=== PATIENT | male | born 1975 | race Caucasian/White ===

== ENCOUNTER 2022-11-27 09:17 | Outpatient (OUT) | payer BC, SELFPAY ==
--- NOTE | 2022-11-27 09:25 | XR_ITS ---
[address] [address] Patient Name: JENNA VILLARREAL MRN: [id number] date: 1975 Sex: M Assigned Patient Location: RAD Current Patient Location: [facility] Accession/Order Number: [id number] Exam Date: 11/27/2022 09:30 Report Date: 11/27/2022 11:52 At the request of: HERMAN ROGER Procedure: XR shoulder RT min 2V EXAM: XR shoulder RT min 2V HISTORY: Right Shoulder Injury COMPARISON: None. TECHNIQUE: 3 views FINDINGS: No acute fracture or dislocation. Mild degenerative change of the acromioclavicular joint. Unremarkable soft tissues. XR/XR shoulder RT min 2V IMPRESSION: Degenerative changes as above. Electronically authenticated by: CORTNEY EDDY Date: 11/27/2022 11:52
== END 2022-11-27 09:18 | disposition home or self-care (01) ==
PROVIDERS: PCP Nurse Practitioner; Visit Provider Nurse Practitioner
DX: S49.91XA Unspecified injury of right shoulder and upper arm, initial encounter (principal)
CPT/HCPCS: 73030

== ENCOUNTER 2023-06-09 15:13 | Outpatient (OUT) | payer BC, SELFPAY ==
--- NOTE | 2023-06-09 15:23 | XR_ITS ---
The [address] [address] Patient Name: JENNA VILLARREAL MRN: [id number] date: 1975 Sex: M Assigned Patient Location: [facility] Current Patient Location: [facility] Accession/Order Number: [id number] Exam Date: 06/09/2023 15:40 Report Date: 06/09/2023 16:36 At the request of: NON-STAFF PHYSICIAN Procedure: XR forearm LT 2V EXAM: XR forearm LT 2V HISTORY: left elbow pain . The patient fell yesterday. COMPARISON: None. TECHNIQUE: 2 views of the left forearm were obtained. FINDINGS: There is no apparent acute fracture or dislocation. The joint spaces proximally and distally are intact. No osteochondral injury is identified. There is no evidence of a joint effusion at the elbow. No abnormal soft tissue calcifications or radiopaque foreign body is identified. XR/XR forearm LT 2V IMPRESSION: No acute fracture or dislocation. The joint spaces are intact. There is no evidence of a joint effusion at the elbow. Electronically authenticated by: LACEY BASURTO Date: 06/09/2023 16:36
== END 2023-06-09 15:14 | disposition home or self-care (01) ==
LOC: RAD 15:16
PROVIDERS: PCP Nurse Practitioner
DX: M25.522 Pain in left elbow (principal)
CPT/HCPCS: 73090

== ENCOUNTER 2023-06-25 12:09 | Outpatient (OUT) | payer BC, SELFPAY ==
--- NOTE | 2023-06-25 12:13 | XR_ITS ---
The [address] [address] Patient Name: JENNA VILLARREAL MRN: [id number] date: 1975 Sex: M Assigned Patient Location: [facility] Current Patient Location: Accession/Order Number: [id number] Exam Date: 06/25/2023 12:16 Report Date: 06/26/2023 15:44 At the request of: SUZAN SAM Procedure: XR elbow LT min 3V PROCEDURE: XR elbow LT min 3V DATE: 06/25/2023 11:16 AM APPLICATION SUPPORT TECHNICIAN COMPARISONS: None CLINICAL INDICATION: Left Elbow Pain M25.522 FINDINGS: There is no evidence of fractures or other osseous abnormalities. No evidence of left elbow joint effusion. XR/XR elbow LT min 3V IMPRESSION: Left elbow radiographs show no evidence of abnormalities. Electronically authenticated by: KAYCEE FENG Date: 06/26/2023 15:44
--- OUTSIDE RECORDS SUMMARY | 2023-06-25 12:25 | XMS_ITS | CCD ---
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 BC #### [facility] [address] [place] [address] Dr. Katharine Limon Hemoglobin (Bld) [Mass/Vol] 17.1 g/dL Normal 14.0-18.0 [facility] Comment on above: Performed By: #### C BC #### [facility] [address] [place] [address] Dr. Katharine Limon IG # 0.02 10e3/ul Normal 0.00-0.03 [facility] Comment on above: Performed By: #### C BC #### [facility] [address] [place] [address] Dr. Katharine Limon IG % 0.3 % Normal 0.0-0.5 [facility] Comment on above: Performed By: #### C BC #### [facility] [address] [place] [address] Dr. Katharine Limon LYMPH # 1.9 103/ul Normal 1.2-3.8 [facility] Comment on above: Performed By: #### C BC #### [facility] [address] [place] [address] Dr. Katharine Limon Lymphocytes/100 WBC (Bld) 29.2 % Normal 20.5-60.0 [facility] Comment on above: Performed By: #### C BC #### [facility] [address] [place] [address] Dr. Katharine Limon MANUAL DIFF REQ NO Normal [facility] Comment on above: Performed By: #### C BC #### [facility] [address] [place] [address] Dr. Katharine Limon MCH (RBC) [Entitic mass] 30.3 pg Normal 25.9-34.0 [facility] Comment on above: Performed By: #### C BC #### [facility] [address] [place] [address] Dr. Katharine Limon MCHC (RBC) [Mass/Vol] 35.8 g/dL Critically high 29.9-35.2 [facility] Comment on above: Performed By: #### C BC #### [facility] [address] [place] [address] Dr. Katharine Limon MCV (RBC) [Entitic vol] 84.6 fL Normal 80.0-94.0 [facility] Comment on above: Performed By: #### C BC #### [facility] [address] [place] [address] Dr. Katharine Limon MONO # 0.8 103/ul Normal 0.3-0.8 [facility] Comment on above: Performed By: #### C BC #### [facility] [address] [place] [address] Dr. Katharine Limon Monocytes/100 WBC (Bld) 11.9 % Normal 1.7-12.0 [facility] Comment on above: Performed By: #### C BC #### [facility] [address] [place] [address] Dr. Katharine Limon NEUT # 3.6 103/ul Normal 1.4-6.5 [facility] Comment on above: Performed By: #### C BC #### [facility] [address] [place] [address] Dr. Katharine Limon Neutrophils/100 WBC (Bld) 53.3 % Normal 43.0-75.0 [facility] Comment on above: Performed By: #### C BC #### [facility] [address] [place] [address] Dr. Katharine Limon Platelet mean volume (Bld) [Entitic vol] 9.6 fL Normal 9.5-13.5 [facility] Comment on above: Performed By: #### C BC #### [facility] [address] [place] [address] Dr. Katharine Limon PLT 178 103/ul Normal 150-450 [facility] Comment on above: Performed By: #### C BC #### [facility] [address] [place] [address] Dr. Katharine Limon RBC 5.65 106/ul Normal 4.70-6.10 [facility] Comment on above: Performed By: #### C BC #### [facility] [address] [place] [address] Dr. Katharine Limon WBC 6.7 103/ul Normal 4.0-11.0 [facility] Comment on above: Performed By: #### C BC #### [facility] [address] [place] [address] Dr. Katharine Limon D-DIMERon 07-21-2022 D-DIMER 0.27 mg/L FEU Normal <=0.59 [facility] Comment on above: Performed By: #### D DIM #### [facility] [address] [place] [address] Dr. Katharine Limon D-DIMER COMMENTS SEE BELOW Normal [facility] Comment on above: Result Comment: Incr eases in D-Dimer concentration observed with thromboembolic events can be variable due to localization, size, and age of the thrombus. Therefore, a thromboembolic event cannot be diagnosed with certainty on the basis of the reference range. D-Dimers may also be elevated for a variety of disorders including: advanced age, , coronary disease, cancer, liver disease, infection, inflammation, hematoma, DIC, trauma, post-surgery, diabetes, thrombolytic or anticoagulant therapy, stress, and generalized hospitalization. Performed By: #### D DIM #### [facility] [address] [place] [address] Dr. Katharine Limon PROF CHEM 8 (BAS METB)on Anion gap [Moles/Vol] 13.6 mmol/L Normal [facility] Comment on above: Performed By: #### B HOSPICE ENTRANCE ATTENDANT, HSTROPN, BMP #### [facility] [address] [place] [address] Dr. Katharine Limon Calcium [Mass/Vol] 9.7 mg/dL Normal 8.5-10.1 [facility] Comment on above: Performed By: #### B HOSPICE ENTRANCE ATTENDANT, HSTROPN, BMP #### [facility] [address] [place] [address] Dr. Katharine Limon Chloride [Moles/Vol] 105 mmol/L Normal 98-107 [facility] Comment on above: Performed By: #### B HOSPICE ENTRANCE ATTENDANT, HSTROPN, BMP #### [facility] [address] [address] [address] Katharine Limon CO2 [Moles/Vol] 28.5 mmol/L Normal 21.0-32.0 [facility] Comment on above: Performed By: #### B HOSPICE ENTRANCE ATTENDANT, HSTROPN, BMP #### [facility] [address] [place] [address] Dr. Katharine Limon Creatinine [Mass/Vol] 1.04 mg/dL Normal 0.70-1.30 [facility] Comment on above: Performed By: #### B HOSPICE ENTRANCE ATTENDANT, HSTROPN, BMP #### [facility] [address] [place] [address] Dr. Katharine Limon EGFR-AF [place] >60 Normal >=60 [facility] Comment on above: Performed By: #### B HOSPICE ENTRANCE ATTENDANT, HSTROPN, BMP #### [facility] [address] [place] [address] Dr. Katharine Limon EGFR-NON AF [place] >60 Normal >=60 [facility] Comment on above: Performed By: #### B HOSPICE ENTRANCE ATTENDANT, HSTROPN, BMP #### [facility] [address] [place] [address] Dr. Katharine Limon Glucose [Mass/Vol] 104 mg/dL Normal 74-106 [facility] Comment on above: Performed By: #### B HOSPICE ENTRANCE ATTENDANT, HSTROPN, BMP #### [facility] [address] [place] [address] Dr. Katharine Limon Potassium [Moles/Vol] 4.1 mmol/L Normal 3.5-5.1 [facility] Comment on above: Performed By: #### B HOSPICE ENTRANCE ATTENDANT, HSTROPN, BMP #### [facility] [address] [place] [address] Dr. Katharine Limon Sodium [Moles/Vol] 143 mmol/L Normal 136-145 [facility] Comment on above: Performed By: #### B HOSPICE ENTRANCE ATTENDANT, HSTROPN, BMP #### [facility] [address] [place] [address] Dr. Katharine Limon Urea nitrogen [Mass/Vol] 6.0 mg/dL Critically low 7.0-18.0 [facility] Comment on above: Performed By: #### B ROSA FELIZ, BMP #### [facility] [address] [address] [address] Katharine Limon Urea nitrogen/Creatinine [Mass ratio] 5.8 mg/mg Normal [facility] Comment on above: Performed By: #### B HOSPICE ENTRANCE ATTENDANT HSTRRANJAN, BMP #### [facility] [address] [address] [address] Katharine Limon TROPONIN, HIGH SENSITIVITYon 07-21-2022 HSTROP 4.1 pg/mL Normal 4.0-76.1 [facility] Comment on above: Result Comment: CUT- OFF POINTS HAVE BEEN ESTABLISHED BASED ON THE FOURTH UNIVERSAL DEFINITIONS OF MYOCARDIAL INFARCTION. THE UPPER REFERENCE LIMIT (URL) OF TROPONIN, DEFINED THE 99TH PERCENTILE OF cTnI DISTRIBUTION IN A REFERENCE POPULATION, HAS BEEN CONFIRMED THE DECISION THRESHOLD FOR PR DIAGNOSIS. Performed By: #### H STROPN #### [facility] [address] [address] [address] Katharine Limon HSTROP 4.3 pg/mL Normal 4.0-76.1 [facility] Comment on above: Result Comment: CUT- OFF POINTS HAVE BEEN ESTABLISHED BASED ON THE FOURTH UNIVERSAL DEFINITIONS OF MYOCARDIAL INFARCTION. THE UPPER REFERENCE LIMIT (URL) OF TROPONIN, DEFINED THE 99TH PERCENTILE OF cTnI DISTRIBUTION IN A REFERENCE POPULATION, HAS BEEN CONFIRMED THE DECISION THRESHOLD FOR PR DIAGNOSIS. Performed By: #### B HOSPICE ENTRANCE ATTENDANT, HSTROPBeatrice, BMP #### [facility] [address] [address] [address] Katahrine Limon XR CHEST 1 Von 07-21-2022 XR CHEST 1 V EXAM: XR CHEST 1 V HISTORY: Chest pain; technologist notes state hypertension, nausea and chest pain starting yesterday. COMPARISON: 05/01/2021. TECHNIQUE: AP erect portable chest radiograph performed. FINDINGS: The trachea is midline. The heart size is within normal limits and stable. The mediastinal and hilar shadows are unremarkable. There is mild linear atelectasis laterally at the right lung base. The lung mejia are otherwise clear. There is no pneumothorax. There is no acute osseous abnormality. IMPRESSION: Mild linear atelectasis laterally at the right lung base. The AP erect portable chest radiograph is otherwise unremarkable. Electronically authenticated by: LACEY GARCIA Date: 2022-07-21 07:53 Normal [facility] 08[facility]16 SARS-CoV-2 (COVID-19) RNA TONYA+probe Ql (Unsp spec) Not detected Normal NOT DETECTED [facility] Comment on above: Result Comment: This test is not yet approved or cleared by the [place] FDA. When there are no FDA-approved or cleared tests available, and other criteria are met, FDA can make tests available under an emergency access mechanism called an Emergency Use Authorization (EUA). The EUA for this test is supported by the Rail Switch Operator of Health and Human Service's (HHS's) declaration that circumstances exist to justify the emergency use of in vitro diagnostics for the detection and/or diagnosis of the virus that causes COVID-19. This EUA will remain in effect (meaning this test can be used) for the duration of the COVID-19 declaration justifying emergency of IVDs, unless it is terminated or revoked by FDA (after which the test may no longer be used). When diagnostic testing is negative, the possibility of a false negative should be considered in the context of a patient's recent exposures and the presence of clinical signs and symptoms consistent with SARS-CoV-2. Performed By: #### C [facility] #### [facility] [address] [place] [address] Dr. Katharine Limon Vital Signs Date Time Vital Sign Value Performing Clinician Facility 11-07-2022 09:30-0400 Body height 165.1 cm Zunilda Melara Other [facility] Other 11-07-2022 09:30-0400 Body mass index (BMI) [Ratio] 33.28 kg/m2 Zunilda Melara Other [facility] Other 11-07-2022 09:30-0400 Body temperature 98.2 [degF] Zunilda Sairtha Other [facility] Other 11-07-2022 09:30-0400 Body weight 90.72 kg Zunilda Saritha Other [facility] Other 11-07-2022 09:30-0400 Diastolic blood pressure 79 mm[Hg] Zunilda Saritha Other [facility] Other 11-07-2022 09:30-0400 Respiratory rate 18 /min Zunilda Saritha Other [facility] Other 11-07-2022 09:30-0400 SaO2% (BldA) [Mass fraction] 98 % Zunilda Saritha Other [facility] Other 11-07-2022 09:30-0400 Systolic blood pressure 121 mm[Hg] Zunilda Saritha Other [facility] Other 02-11-2021 10:30-0400 Body height 165.1 cm Zunilda Saritha Other [facility] Other 02-11-2021 10:30-0400 Body mass index (BMI) [Ratio] 31.61 kg/m2 Zunilda Saritha Other [facility] Other 02-11-2021 10:30-0400 Body temperature 97.3 [degF] Zunilda Saritha Other [facility] Other 02-11-2021 10:30-0400 Body weight 86.18 kg Zunilda Saritha Other [facility] Other 02-11-2021 10:30-0400 SaO2% (BldA) [Mass fraction] 98 % Zunilda Saritha Other [facility] Other 11-15-2020 17:54-0400 Body height 165.1 cm MD Priya Dickey Work Phone: [facility] 11-15-2020 17:54-0400 Body mass index (BMI) [Ratio] 31.6 kg/m2 MD Priya Dickey Work Phone: [facility] 11-15-2020 17:54-0400 Body temperature 98.2 [degF] MD Priya Dickey Work Phone: [facility] 11-15-2020 17:54-0400 Body weight 86.18 kg MD Priya Dickey Work Phone: [facility] 11-15-2020 17:54-0400 Diastolic blood pressure 95 mm[Hg] MD Priya Dickey Work Phone: [facility] 11-15-2020 17:54-0400 Heart rate 90 /min MD Priya Dickey Work Phone: [facility] 11-15-2020 17:54-0400 Respiratory rate 18 /min MD Priya Dickey Work Phone: [facility] 11-15-2020 17:54-0400 SaO2% (BldA) [Mass fraction] 95 % MD Priya Dickey Work Phone: [facility] 11-15-2020 17:54-0400 Systolic blood pressure 133 mm[Hg] MD Priya Dickey Work Phone: [facility] Encounters Encounter Date Encounter Type Care Provider Facility Start: 06-09-2023 End: 06-09-2023 Lab Drop off Sunshine Rene [facility] Start: 04-15-2023 End: 04-16-2023 ambulatory SKIN DRIER Sunshine Rene Facility:[facility] Start: 12-31-2022 End: 01-01-2023 ambulatory SKIN DRIER Sunshine L Anju Facility:[facility] Start: 11-24-2022 End: 11-25-2022 ambulatory SKIN DRIER Sunshine L Anju Facility:[facility] Start: 11-07-2022 End: 11-07-2022 ambulatory Zunilda Melara Other [facility] Other Start: 11-07-2022 Office outpatient vi sit 15 minutes Zunilda Melara [facility] Start: 07-29-2022 End: 07-30-2022 ambulatory PRIYA DICKEY Facility:[facility] Start: 07-21-2022 ambulatory PRIYA DICKEY Facility:[facility] Start: 07-21-2022 End: 07-21-[address] PRIYA DICKEY . Facility:[facility] Start: 05-11-[address] BRADEN GIANG . Fac ility:[facility] Start: 09-08-2021 End: 09-08-[address] PRIYA DICKEY . Facility:[facility] Start: 02-11-2021 (URG) Urgent Care Visit Zunilda gieger [facility] Start: 11-15-2020 End: 11-15-2020 Emergency department patient visit MD rPiya Dickey Work Phone: [facility] Procedures Date Procedure Procedure Detail Performing Clinician Start: 03-04-2006 History of repair of inguinal hernia Sunshine Rene Plan of Treatment Date Care Activity Detail Author Patient Education Superficial Burn (ED) [facility] Patient referral [facility] Payers Date Payer Category Payer [facility] [id number] 1973 Unknown [id number] [id number] 1973 Unknown [id number] 2.16.84 [id number] 1973 Unknown [id number] 2.16.84 [id number] 1973 Unknown [id number] 2.16.8 [id number] 1973 Unknown [id number] 2.16.8 [id number] 1973 Unknown [id number] 2.16.8 [id number] 1973 Unknown [id number] 2.16.8 [id number] 1959 Unknown [id number] 1961 Unknown [id number] Self-pay [id number] Social History Date Type Detail Facility Start: 11-15-2020 End: 06-09-2023 Tobacco smoking status NHIS Never smoked tobacco (finding) [facility] Start: 1975 Sex Assigned At Male [facility] Sex Assigned At [facility] Tobacco smoking status Never [facility] Evaluation note 11-07-2022 Note Date & Type Note Facility 11-07-2022 Evaluation note Encounter Date Diagnosis Assessment Notes Oct, Pain, dental (ICD-10 - K08.89) Drink plenty fluids, get plenty of rest. Take the amoxicillin as prescribed until gone. Consider placing a moist teabag to the area for comfort. Take your ibuprofen 600 mg with food up to 4 times a day for mild to moderate pain. For severe pain you may add 3 of your Tylenol capsules to your ibuprofen dose. Call your dentist on Wednesday to report your symptoms. Go to the ER for worsening symptoms or concerns., Dental pain home care material was printed [facility] Other Evaluation note 02-11-2021 Note Date & Type Note Facility 02-11-2021 Evaluation note Encounter Date Diagnosis Assessment Notes Jan, Contact with and (suspected) exposure to other viral communicable diseases (ICD-10 - Z20.828) Jan, COVID-19 (ICD-10 - U07.1) Discharge Instructions for COVID-19 (Suspected or Confirmed ) material was printed. Drink plenty fluids, get plenty of rest. Tylenol or Motrin as needed for aches pains or fevers. Follow-up with your family physician if no improvement in 2 to 3 days. You must self isolate for 10 days after the onset of your symptoms Jan, Other Additional time spent conducting pre-visit phone call, screening for symptoms, instructions on social distancing, application and removal of PPE, and cleaning of examination room, equipment and supplies was preformed. Patient education given for testing methodology and results. Patient care instructions given in writting by [facility] At Home document. [employer] [facility] Other Evaluation + Plan note Note Date & Type Note Facility Evaluation + Plan note No data available for this section [facility] Evaluation note Note Date & Type Note Facility Evaluation note No assessment information availa [facility] History general Narrative - Reported Note Date & Type Note Facility History general Narrative - Reported Type Medical History high blood pressure [facility] [employer] Other History general Narrative - Reported Note Date & Type Note Facility History general Narrative - Reported Type Medical History high blood pressure Surgical History hernia repair [facility] [employer] Other Hospital Discharge instructions Note Date & Type Note Facility Hospital Discharge instructions Additional Instructions Apply antibiotic ointment to burn areas to help prevent infection help with burning You may still also use topical burn medicine such as aloe or Solarcaine to these areas as needed for burning You may take [id number] Tylenol and/or ibuprofen for rich Follow-up with either [facility] Return to the ER if any significant redness swelling purulent drainage from the sites fever chills or any other concerns [facility] Discharge instructions Note Date & Type Note Facility Hospital Discharge instructions No data available for this section [facility] Progress note Note Date & Type Note Facility Progress note No data available for this section [facility] Chief Complaint and Reason for Visit Chief Complaint rich to both legs-i co Advance Directives Advance Directive Response Recorded Date/ Time Advance Directives No November 15 6:23pm Summary Purpose Family History No Family History Records FoundNo Family History Records Found No data available for this section Additional Source Comments Goals (unrecognized section and content) Goals may be documented in a n alternate sectionNo InformationNo Information No data available for this section REASON FOR VISIT (unrecogniz ed section and content) #3 positive exposure cough, headache, chills, sinus drainageleft side TOOTH EXTRACTED WEDNESDAY MAY BE INFECTED (unrecognized sect ion and content) No Status Records FoundNo Status Records Found INFORMATION SOURCE (unrecogn ized section and content) DATE CREATED AUTHOR 07/23/2022 [facility] DATE CREATED AUTHOR AUTHOR'S ORGANIZ ATION 04/17/2023 [facility] Patient Care team informatio n (unrecognized section and content) Personnel Name: Sunshine Chu Address: Address: [address] [place] [address]- FOR RECORDS PERTAINING TO PATIENTS WHO ARE OR HAVE BEEN ENROLLED IN A CHEMICAL DEPENDENCY/SUBSTANCEABUSE PROGRAM, SOME INFORMATION MAY BE OMITTED. This clinical summary was aggregated from multiple sources. Caution should be exercised in using it in the provision of clinical care. This summary normalizes information from multiple sources, and as a consequence, information in this document may materially change the coding, format and clinical context of patient data. In addition, data may be omitted in some cases. CLINICAL DECISIONS SHOULD BE BASED ON THE PRIMARY CLINICAL RECORDS. [facility]. provides no warranty or guarantee of the accuracy or completeness of information in this document.
== END 2023-06-25 12:10 | disposition home or self-care (01) ==
LOC: RAD 12:10
PROVIDERS: PCP Family Medicine; Visit Provider Family Medicine
DX: M25.522 Pain in left elbow (principal)
CPT/HCPCS: 73080

== ENCOUNTER 2023-09-03 06:57 | Outpatient (OUT) | payer BC, SELFPAY ==
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
[2023-09-03 07:59] LABS: Basophils Percent Auto 0.7 % (0.2-2.0); Eosinophils Absolute Auto 0.2 10^3/uL (0.0-0.7); Eosinophils Percent Auto 3.9 % (0.9-7.0); Hematocrit 47.7 % (42.0-54.0); Hemoglobin 15.9 g/dL (14.0-18.0); Immature Granulocytes Abs Auto 0.01 10^3/uL (0.00-0.03); Immature Granulocytes Pct Auto 0.2 % (0.0-0.5); Mean Corpuscular HGB Conc 33.3 g/dL (29.9-35.2); Mean Corpuscular Hemoglobin 29.5 pg (25.9-34.0); Mean Corpuscular Volume 88.5 fL (80.0-94.0); Mean Platelet Volume 9.6 fL (9.5-13.5); Monocytes Absolute Auto 0.6 10^3/uL (0.3-0.8); Monocytes Percent Auto 10.5 % (1.7-12.0); Neutrophils Absolute Auto 3.2 10^3/uL (1.4-6.5); Neutrophils Percent Auto 52.7 % (43.0-75.0); Platelet Count 175 10^3/uL (150-450); Red Blood Count 5.39 10^6/uL (4.70-6.10); Red Cell Distribution Width 12.5 % (11.0-15.0); White Blood Count 6.1 10^3/uL (4.0-11.0)
[2023-09-03 08:17] LABS: Alanine Aminotransferase 32 U/L (16-63); Albumin Globulin Ratio 1.1; Albumin Level 3.5 g/dL (3.4-5.0); Alkaline Phosphatase 56 U/L (46-116); Anion Gap 11.7; Aspartate Amino Transferase 17 U/L (15-37); BUN Creatinine Ratio 11.2; Bilirubin Total 0.4 mg/dL (0.2-1.0); Carbon Dioxide 28.5 mmol/L (21.0-32.0); Chloride 105 mmol/L (98-107); Chol HDL Ratio 3.2; Cholesterol 156 mg/dL (<=200); Estimated GFR (African America >60 (>=60); Estimated GFR (Non-African Ame >60 (>=60); Free T3 2.43 pg/mL (2.18-3.98); Globulin 3.2 g/dL; Glucose 102 mg/dL (74-106); HDL Cholesterol 48 mg/dL (40-60); LDL Cholesterol Calculated 83.4 mg/dL; Potassium 4.2 mmol/L (3.5-5.1); Sodium 141 mmol/L (136-145); Thyroid Stimulating Hormone 3.291 uIU/mL (0.358-3.740); Total Protein 6.7 g/dL (6.4-8.2); Triglycerides 123 mg/dL (<=150); VLDL CHOLESTEROL 24.6 mg/dL
[2023-09-03 08:37] LABS: Estimated Average Glucose 108 mg/dL; Glycohemoglobin A1C 5.4 % (4.5-6.2)
[2023-09-03 09:18] LABS: Prostate Specific Antigen Scrn 0.85 ng/mL (<=4.00)
[2023-09-05 14:07] LABS: Insulin 10.4 uIU/mL (2.6-24.9)
== END 2023-09-03 06:58 | disposition home or self-care (01) ==
LOC: LAB 06:59
PROVIDERS: PCP Family Medicine; Visit Provider Family Medicine
DX: Z00.00 Encounter for general adult medical examination without abnormal findings (principal); Z12.5 Encounter for screening for malignant neoplasm of prostate
CPT/HCPCS: 36415; 80053; 80061; 83036; 83525; 84436; 84443; 84481; 85025; G0103

== ENCOUNTER 2024-06-09 14:34 | Emergency (ER) | payer OTHER, SELFPAY ==
[2024-06-09 14:43] VITALS: PULSE 53
[2024-06-09 14:45] VITALS: BP 126/92; PULSE 65; O2SAT 100; BMI 33.3
--- OUTSIDE RECORDS SUMMARY | 2024-06-09 14:49 | XMS_ITS | CCD ---
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 ER if any significant redness swelling purulent drainage from the sites fever chills or any other concerns [facility] Hospital Discharge instructions Note Date & Type Note Facility Hospital Discharge instructions No data available for this section [facility] Progress note Note Date & Type Note Facility Progress note No data available for this section [facility] Chief Complaint and Reason for Visit Chief [...] and content) DATE CREATED AUTHOR 07/23/2022 [facility] DATE CREATED AUTHOR AUTHOR'S ORGANIZ ATION 04/17/2023 [facility] Patient Care team informatio n (unrecognized section and content) Personnel Name: Sunshine Chu Address: Address: [address] [place] [address]- FOR RECORDS PERTAINING TO PATIENTS WHO ARE [...] BE BASED ON THE PRIMARY CLINICAL RECORDS. [facility]. provides no warranty or guarantee of the accuracy or completeness of information in this document.
--- NOTE | 2024-06-09 14:55 | ECG_ITS ---
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
[2024-06-09 15:01] VITALS: O2SAT 98
[2024-06-09 15:07] LABS: Basophils Percent Auto 0.4 % (0.2-2.0); Eosinophils Absolute Auto 0.2 10^3/uL (0.0-0.7); Eosinophils Percent Auto 2.1 % (0.9-7.0); Hematocrit 48.8 % (42.0-54.0); Hemoglobin 16.9 g/dL (14.0-18.0); Immature Granulocytes Abs Auto 0.01 10^3/uL (0.00-0.03); Immature Granulocytes Pct Auto 0.1 % (0.0-0.5); Lymphocytes Absolute Auto 1.7 10^3/uL (1.2-3.8); Lymphocytes Percent Auto 23.4 % (20.5-60.0); Mean Corpuscular HGB Conc 34.6 g/dL (29.9-35.2); Mean Corpuscular Hemoglobin 29.9 pg (25.9-34.0); Mean Corpuscular Volume 86.2 fL (80.0-94.0); Mean Platelet Volume 9.6 fL (9.5-13.5); Monocytes Absolute Auto 0.7 10^3/uL (0.3-0.8); Monocytes Percent Auto 9.9 % (1.7-12.0); Neutrophils Absolute Auto 4.7 10^3/uL (1.4-6.5); Neutrophils Percent Auto 64.1 % (43.0-75.0); Platelet Count 182 10^3/uL (150-450); Red Blood Count 5.66 10^6/uL (4.70-6.10); Red Cell Distribution Width 12.2 % (11.0-15.0); White Blood Count 7.3 10^3/uL (4.0-11.0)
--- NOTE | 2024-06-09 15:10 | XR_ITS ---
The [address] [address] Patient Name: JENNA VILLARREAL MRN: [id number] date: 1975 Sex: M Assigned Patient Location: ER Current Patient Location: ER Accession/Order Number: [id number] Exam Date: 06/09/2024 15:20 Report Date: 06/09/2024 15:33 At the request of: POLLY QUILES Procedure: XR chest 1V EXAMINATION: XR chest 1V HISTORY: chest pain COMPARISON: 07/21/2022 TECHNIQUE: AP portable erect FINDINGS: LUNGS: No significant pulmonary parenchymal abnormalities. VASCULATURE: No increased pulmonary vasculature. PLEURA: No pneumothorax, effusion, or pleural thickening. CARDIAC: No cardiomegaly or cardiac silhouette abnormality. MEDIASTINUM: No visible mass or adenopathy. BONES: No fracture or visible bone lesion. OTHER: Negative. XR/XR chest 1V IMPRESSION: No acute cardiopulmonary process Electronically authenticated by: BAYLEE PATTERSON Date: 06/09/2024 15:33
--- NOTE | 2024-06-09 15:17 | ED.CHESTPAI1 ---
HPI - Chest Pain General Chief Complaint: Chest Pain Stated Complaint: SOB, CHEST PAIN Time Seen by Provider: 06/09/24 14:42 Source: patient Mode of arrival: walk-in Limitations: no limitations History of Present Illness HPI narrative: Patient presents complaining of heaviness across the anterior chest. Today around noon he started to experience locking up of his jaw. He experienced this previously but it is typically underneath the jaw whereas today it was on the left side. He thought this was odd. He cannot tell me whether or not that elicit any anxiety but he started to develop some lightheadedness and tingling sensation in the jaw and in the anterior chest. He decided to lay down and take a nap. When he got up around 2 PM, he had heaviness across the chest and his told him that he did not look good . He decided come to the ED for evaluation. Prior medical history includes hypertension. He was checking his blood pressure at home and said that the max value he got at home was systolic 152, diastolic 96. He said he checked his blood pressure several times and the measurements were up-and-down . He denied any associated headache or visual change. He did have some lightheadedness or dizziness. He never felt shortness of breath but he did feel as if the pain worsened when he got up to walk around. Again he described that pain as heaviness , rating it 5 out of 10 at its max. His only medication is metoprolol, twice daily. No prior abnormal cardiac workup. Sometime before 2019 he had a stress test which was normal. He does admit to some anxiety but does not take medication for it. No recent illness or injury to the chest Related Data Allergies Allergy/AdvReac Type Severity Reaction Status Date / Time metaxalone (From Skelaxin) Allergy Severe Anaphylaxis Verified 06/09/24 14:45 PFSH PFSH Social History Little interest or pleasure in doing things: not at all Feeling down, depressed, or hopeless: not at all Exam Narrative Exam Narrative: Nurses notes and vital signs reviewed and patient is not hypoxic. afebrile General: Well-appearing and in no apparent distress. Skin: Warm, dry, no pallor noted. No rash. Head: Normocephalic, atraumatic. Neck: Supple, non-tender. Eye: Pupils are equal, round and EOMI. No scleral icterus. Ears, Nose, Mouth, and Throat: Oral mucosa is moist Cardiovascular: Regular Rate and Rhythm without murmur, gallop or rub. Respiratory: No accessory muscle use or respiratory distress. Lungs are clear to auscultation, no wheezing, rales or rhonchi Chest Wall: no tenderness, crepitus or subcutaneous emphysema Musculoskeletal: normal ROM, no calf or popliteal tenderness, no lower extremity edema/swelling GI: Abdomen is soft, non-distended. Normal bowel sounds. No tenderness to palpation. No rebound, guarding, or rigidity noted. Neurological: A&O x4. No cranial nerve dysfunction observed. No truncal ataxia. Moves all extremities. Sensation intact. Psychiatric: Cooperative and interactive. Normal mood and affect. Constitutional Vital Signs, click to edit/add: Last Vital Signs Pulse 65 06/09/24 14:45 Resp 16 06/09/24 14:45 BP 126/92 H 06/09/24 14:45 Pulse Ox 98 06/09/24 15:01 O2 Del Method Room Air 06/09/24 15:01 Course Vital Signs Vital signs: Vital Signs Pulse Rate 65 06/09/24 14:45 Respiratory Rate 16 06/09/24 14:45 Blood Pressure 126/92 H 06/09/24 14:45 Pulse Oximetry 100 06/09/24 14:45 Oxygen Delivery Method Room Air 06/09/24 14:45 Pulse Rate 65 06/09/24 14:45 Respiratory Rate 16 06/09/24 14:45 Blood Pressure 126/92 H 06/09/24 14:45 Pulse Oximetry 98 06/09/24 15:01 Oxygen Delivery Method Room Air 06/09/24 15:01 MDM - Chest Pain MDM Narrative Medical decision making narrative: Patient was placed on teletypesetter monitor and EKG obtained. Blood drawn and sent for evaluation. Portable chest x-ray obtained. Workup was negative including troponin x 2 The patient's heart score is 2. Per risk stratification and recommendations the patient will be discharged home with recommendation for outpatient follow-up. He will need to return to the ED should he experience return of chest pain, any worrisome symptoms such as shortness of breath, passing out. Medical Records Data Attestation: I reviewed the patient's medical records. Lab Data Attestation: I reviewed the patient's lab results. Labs: Lab Results 01/24/25 01/24/25 Range/Units 14:52 16:04 WBC 7.3 (4.0-11.0) 10^3/uL RBC 5.66 (4.70-6.10) 10^6/uL Hgb 16.9 (14.0-18.0) g/dL Hct 48.8 (42.0-54.0) % MCV 86.2 (80.0-94.0) fL MCH 29.9 (25.9-34.0) pg MCHC 34.6 (29.9-35.2) g/dL RDW 12.2 (11.0-15.0) % Plt Count 182 (150-450) 10^3/uL MPV 9.6 (9.5-13.5) fL Neut % (Auto) 64.1 (43.0-75.0) % Lymph % (Auto) 23.4 (20.5-60.0) % [place] % (Auto) 9.9 (1.7-12.0) % Eos % (Auto) 2.1 (0.9-7.0) % Baso % (Auto) 0.4 (0.2-2.0) % Neut # (Auto) 4.7 (1.4-6.5) 10^3/uL Lymph # (Auto) 1.7 (1.2-3.8) 10^3/uL [place] # (Auto) 0.7 (0.3-0.8) 10^3/uL Eos # (Auto) 0.2 (0.0-0.7) 10^3/uL Baso # (Auto) 0.0 (0.0-0.1) 10^3/uL Abs Immat Gran (auto) 0.01 (0.00-0.03) 10^3/uL Imm/Tot Granulo (auto) 0.1 (0.0-0.5) % Sodium 140 (136-145) mmol/L Potassium 3.9 (3.5-5.1) mmol/L Chloride 103 (98-107) mmol/L Carbon Dioxide 29.9 (21.0-32.0) mmol/L Anion Gap 11.0 BUN 9.0 (7.0-18.0) mg/dL Creatinine 1.24 (0.70-1.30) mg/dL Est GFR ( Amer) >60 (>=60 mL/min/1.73m^2) Est GFR (Non-Af Amer) >60 (>=60 mL/min/1.73m^2) BUN/Creatinine Ratio 7.3 Glucose 95 (74-106) mg/dL Calcium 8.9 (8.5-10.1) mg/dL Total Bilirubin 0.6 (0.2-1.0) mg/dL AST 20 (15-37) U/L ALT 31 (16-63) U/L Alkaline Phosphatase 67 (46-116) U/L Troponin I High Sens 6.4 6.0 (4.0-76.1) pg/mL Total Protein 7.5 (6.4-8.2) g/dL Albumin 4.1 (3.4-5.0) g/dL Globulin 3.4 g/dL Albumin/Globulin Ratio 1.2 Imaging Data Chest x-ray: Attestation: I have reviewed the pertinent imaging results. Radiologist's impression: ITS Impressions Chest X-Ray 06/09/24 15:10 IMPRESSION: No acute cardiopulmonary process Electronically authenticated by: BAYLEE PATTERSON Date: 06/09/2024 15:33 ECG Data Attestation: I personally reviewed and interpreted this ECG as follows: Interpretation: EKG interpretation: Emergency Department physician interpretation. Normal sinus rhythm at 53bpm. Normal axis, normal intervals and no ST segment elevation or depression. Heart Score History: Slightly/Non-Suspicious ECG: Normal Age: >45-<65 years Risk Factors: 1 or 2 Risk Factors Troponin: <Normal Limit Total Heart Score Recommendations & Risks:: 2 Discharge Plan Discharge Chief Complaint: Chest Pain Clinical Impression: Chest pain Patient Disposition: Home, Self-Care Time of Disposition Decision: 16:28 Print Language: Danish Instructions: Chest Pain (ED) Referrals: Dennis Torres MD [Primary Care Provider] - 1 week
[2024-06-09 15:18] LABS: Alanine Aminotransferase 31 U/L (16-63); Albumin Globulin Ratio 1.2; Albumin Level 4.1 g/dL (3.4-5.0); Alkaline Phosphatase 67 U/L (46-116); Aspartate Amino Transferase 20 U/L (15-37); BUN Creatinine Ratio 7.3; Bilirubin Total 0.6 mg/dL (0.2-1.0); Calcium 8.9 mg/dL (8.5-10.1); Carbon Dioxide 29.9 mmol/L (21.0-32.0); Chloride 103 mmol/L (98-107); Estimated GFR (African America >60 (>=60 mL/min/1.73m^2); Estimated GFR (Non-African Ame >60 (>=60 mL/min/1.73m^2); Globulin 3.4 g/dL; Glucose 95 mg/dL (74-106); Potassium 3.9 mmol/L (3.5-5.1); Sodium 140 mmol/L (136-145); Total Protein 7.5 g/dL (6.4-8.2)
[2024-06-09 15:20] LABS: Troponin I High Sensitivity 6.4 pg/mL (4.0-76.1)
== END 2024-06-09 16:50 | disposition home or self-care (01) ==
PROVIDERS: Emergency Provider Emergency Medicine; PCP Family Medicine
DX: R07.9 Chest pain, unspecified (principal); I10 Essential (primary) hypertension
CPT/HCPCS: 36415; 71045; 80053; 84484; 85025; 93005; 99285